=== PATIENT | female | born 1985 | race Caucasian/White ===

== ENCOUNTER 2023-10-20 14:48 | Outpatient (OUT) | payer OTHER, SELFPAY ==
--- NOTE | 2023-10-20 | XR_ITS ---
The [address] [address] Patient Name: ALFONSO SARAH MRN: [id number] date: 1985 Sex: F Assigned Patient Location: Current Patient Location: Accession/Order Number: [id number] Exam Date: 10/20/2023 14:48 Report Date: 10/22/2023 09:04 At the request of: RODGER MALDONADO Procedure: XR foot LT min 3V PROCEDURE: XR foot LT min 3V HISTORY: LEFT FOOT PAIN COMPARISON: XR foot left 06/02/2022 FINDINGS: BONES:Mechanical fusion of the first tarsal-metatarsal joint and the medial and middle cuneiforms. Prior bunionectomy. Moderate- marked degenerative changes the first metatarsophalangeal joint. Prior resection of head of second proximal phalanx. SOFT TISSUES:No visible soft tissue swelling. EFFUSION:None visible. OTHER: Negative. XR/XR foot LT min 3V IMPRESSION: 1. Stable surgical changes without evidence of hardware failure or change in alignment. 2. Stable moderate- marked degenerative changes the first metatarsophalangeal joint. Electronically authenticated by: JON ABDUL Date: 10/22/2023 09:04
== END 2023-10-20 14:49 | disposition home or self-care (01) ==
PROVIDERS: Visit Provider Physician Assistant
DX: M79.672 Pain in left foot (principal); Z98.890 Other specified postprocedural states
CPT/HCPCS: 73630

== ENCOUNTER 2023-10-25 12:49 | Outpatient (OUT) | payer OTHER, SELFPAY ==
--- NOTE | 2023-10-25 12:51 | CT_ITS ---
The [address] [address] Patient Name: ALFONSO SARAH MRN: [id number] date: 1985 Sex: F Assigned Patient Location: CT Current Patient Location: CT Accession/Order Number: [id number] Exam Date: 10/25/2023 12:52 Report Date: 10/25/2023 13:26 At the request of: RODGER MALDONADO Procedure: CT foot LT wo con EXAMINATION: CT foot LT wo con HISTORY: Left Foot Arthritis COMPARISON: No relevant comparison available. TECHNIQUE: Multi-planar CT images were created without IV contrast. Dose reduction techniques were achieved by using automated exposure control and/or adjustment of mA and/or kV according to patient size and/or use of iterative reconstruction technique. FINDINGS: BONES: No acute fracture or dislocation. Severe degenerative changes of the first metatarsal-phalangeal joint with [id number] articulation and moderate hallux valgus. Single screw extends from the base of the first metatarsal through the medial into the intermediate cuneiform. Fusion the first tarsometatarsal joint. No acute fracture, dislocation or mechanical failure. Corticated bone fragments along the inferior lateral malleolus, remote injury. 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 Mild enthesopathic spurring of the calcaneus at the Achilles and plantar insertions SOFT TISSUES: Negative. No visible soft tissue swelling. EFFUSION: None visible. OTHER: Negative. 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
== END 2023-10-25 12:50 | disposition home or self-care (01) ==
LOC: CT 12:49
PROVIDERS: Visit Provider Physician Assistant
DX: M19.072 Primary osteoarthritis, left ankle and foot (principal); M20.12 Hallux valgus (acquired), left foot
CPT/HCPCS: 73700

== ENCOUNTER 2025-02-25 15:44 | Outpatient (REF) | payer OTHER, SELFPAY ==
[2025-02-28 00:07] LABS: Age Gdln ACOG Testing Note (.); IGP, Aptima HPV, rfx 16/18,45 Note (.)
== END 2025-02-25 15:45 | disposition home or self-care (01) ==
LOC: LAB 15:44
PROVIDERS: Visit Provider Obstetrics & Gynecology
DX: Z01.419 Encounter for gynecological examination (general) (routine) without abnormal findings (principal)
CPT/HCPCS: 87624; 88175